=== PATIENT | male | born 1940 | race Hispanic/Latino ===

== ENCOUNTER 2017-04-11 08:53 | Inpatient (IN) | payer OTHER, MEDICARE ==
[~2017-04-11] VITALS: Ht 167.6 cm; Wt 65.9 kg
[~2017-04-11 08:53] MED LIST: LISI40TA4 PO; METO25TA6 PO; PANT40TA25 PO; SIMV20TA6 PO; TRAZ-144 PO
[2017-04-11] MEDS ORDERED: SODIUM CHLORIDE 0.9% 1000ML 1,000 ML IV ONE (09:23)
[2017-04-11 09:29] LABS: BASOPHILS % (AUTO) 0.3 % (0.0-5.0); EOSINOPHILS % (AUTO) 1.3 % (0.0-8.0); HEMATOCRIT 37.3 % (42-54); LYMPHOCYTES % (AUTO) 8.3 % (21.0-51.0); MEAN CORPUSCULAR HEMOGLOBIN 31.2 pg (27.0-33.0); MEAN CORPUSCULAR HGB CONC 33.4 g/dL (32.0-36.0); MEAN CORPUSCULAR VOLUME 93.1 fL (79-99); MONOCYTES % (AUTO) 6.7 % (3.0-13.0); NEUTROPHILS % (AUTO) 83.4 % (40.0-77.0); PLATELET COUNT (AUTO) 268 K/uL (130-400); RED CELL DISTRIBUTION WIDTH 15.1 % (11.0-15.5); WHITE BLOOD COUNT (AUTO) 5.4 K/uL (4.8-10.8)
[2017-04-11 09:38] LABS: CREATININE 1.7 mg/dL (0.5-1.5); POTASSIUM 4.6 mmol/L (3.5-5.1)
[2017-04-11 09:54] LABS: ALBUMIN 2.8 g/dL (3.5-5.0); BILIRUBIN,TOTAL 1.1 mg/dL (0.2-1.0); CREATINE KINASE MB 2.4 ng/mL (0.5-3.6); TOTAL PROTEIN, SERUM 5.8 g/dL (6.0-8.3)
[2017-04-11 09:56] LABS: INR 0.99 (0.85-1.15); PARTIAL THROMBOPLASTIN TIME 27.5 SEC (26.3-35.5); PROTHROMBIN TIME 10.4 SEC (9.6-11.6)
[2017-04-11 10:36] LABS: B-TYPE NATRIURETIC PEPTIDE 43 pg/mL (0-100)
[2017-04-11 11:51] LABS: APPEARANCE,URINE Clear (CLEAR); BILIRUBIN,URINE Negative (NEGATIVE); COLOR,URINE Yellow (YELLOW); GLUCOSE, URINE (UA) Negative (NEGATIVE); KETONES,URINE 15 mg/dL (NEGATIVE); LEUKOCYTE ESTERASE ,URINE Negative (NEGATIVE); NITRATE,URINE Negative (NEGATIVE); OCCULT BLOOD,URINE Negative (NEGATIVE); PH,URINE 5.5 (5.0-8.0); PROTEIN,URINE Negative (NEGATIVE)
[2017-04-11] MEDS ORDERED: SODIUM BICARB 8.4% 50ML SYRINGE IVP ONE (12:00)
[2017-04-11] MEDS ORDERED: EPINEPHRINE 0.1 MG/ML 10 ML SYG IVP ONE (12:00)
[2017-04-11 12:06] LABS: BACTERIA,URINE Rare /HPF (None Seen); RBC,URINE 0-1 /HPF (0-1); SQUAMOUS EPITHELIAL CELL,UR Rare /LPF (0-2); WBC,URINE 0-1 /HPF (0-1)
[2017-04-11 23:45] VITALS: BP_SYST 132; BP_SYST 140; BP_DIAS 63; BP_DIAS 81
[2017-04-12] MEDS: SODIUM CHLORIDE 0.9% 1000ML 1,000 ML IV SCH ×2 (02:34→15:06)
[2017-04-12 03:53] VITALS: BP 103/60
[2017-04-12 05:33] LABS: HEMATOCRIT 37.1 % (42-54); MEAN CORPUSCULAR HEMOGLOBIN 30.9 pg (27.0-33.0); MEAN CORPUSCULAR HGB CONC 33.3 g/dL (32.0-36.0); MEAN CORPUSCULAR VOLUME 92.8 fL (79-99); PLATELET COUNT (AUTO) 267 K/uL (130-400); RED CELL DISTRIBUTION WIDTH 15.3 % (11.0-15.5); WHITE BLOOD COUNT (AUTO) 4.9 K/uL (4.8-10.8)
[2017-04-12 05:45] LABS: BAND NEUTROPHILS % (MANUAL) 8 % (0-2); EOSINOPHILS % (MANUAL) 1 % (1-6); LYMPHOCYTES % (MANUAL) 24 % (22-44); MAN.DIFF COMMENT-IMPRESSION MANUAL DIFFERENTIAL; MONOCYTES % (MANUAL) 1 % (2-9); PLATELET MORPHOLOGY COMMENT ADEQUATE; SEGMENTED NEUTROPHILS % 66 % (40-70)
[2017-04-12 05:56] LABS: CARBON DIOXIDE 26 mmol/L (21-32); CHLORIDE 100 mmol/L (101-111); CREATINE KINASE MB 2.5 ng/mL (0.5-3.6); CREATINE KINASE, TOTAL 85 U/L (21-232); CREATININE 1.2 mg/dL (0.5-1.5); GLOMERULAR FILTR. RATE CALC 63 mL/min (>60); GLUCOSE,RANDOM 74 mg/dL (70-105); MYOGLOBIN 207 ng/mL (10-92); POTASSIUM 5.1 mmol/L (3.5-5.1); SODIUM SERUM 135 mmol/L (136-145); TROPONIN I < 0.04 ng/mL (0.00-0.06); UREA NITROGEN, BLOOD 19 mg/dL (7-18)
[2017-04-12] MEDS ORDERED: TYL3 PO (07:57)
[2017-04-12 08:00] VITALS: BP 133/67
[2017-04-12] MEDS: PANTOPRAZOLE SODIUM 40 MG TABLET.DR PO SCH (09:57)
[2017-04-12 10:35] LABS: CREATINE KINASE, TOTAL 89 U/L (21-232); MYOGLOBIN 192 ng/mL (10-92); TROPONIN I < 0.04 ng/mL (0.00-0.06)
[2017-04-12 11:56] VITALS: BP 129/72
[2017-04-12] MEDS: ONDANSETRON HCL 4 MG/2 ML VIAL IVP PRN ×2 (14:49→20:35)
[2017-04-12] MEDS: ACETAMINOPHEN-CODEINE 300/30MG TAB PO SCH (15:04)
[2017-04-12] MEDS ORDERED: IOPAMIDOL-370 75 ML VIAL IV ONE (15:14)
[2017-04-12] MEDS ORDERED: DIATR MEGLU/DIATRIZOATE SODIUM 30 ML BOTTLE PO ONE (15:15)
[2017-04-12 16:00] VITALS: BP 115/71
[2017-04-12 20:00] VITALS: BP 137/86
[2017-04-12] MEDS ORDERED: TRAZODONE HCL 50 MG TAB PO SCH (21:00)
[2017-04-12] MEDS ORDERED: ATORVASTATIN CALCIUM 10 MG TABLET PO SCH (21:00)
[2017-04-12 23:39] VITALS: BP 118/62
[2017-04-13] MEDS: ONDANSETRON HCL 4 MG/2 ML VIAL IVP PRN ×3 (01:15→14:26)
[2017-04-13] MEDS: SODIUM CHLORIDE 0.9% 1000ML 1,000 ML IV SCH ×2 (01:16→14:36)
[2017-04-13] MEDS: ACETAMINOPHEN-CODEINE 300/30MG TAB PO SCH ×2 (02:30→09:36)
[2017-04-13 03:53] VITALS: BP 141/74
[2017-04-13 08:00] VITALS: BP 133/77
[2017-04-13] MEDS ORDERED: METOPROLOL TARTRATE 25 MG TAB PO SCH (09:00)
[2017-04-13] MEDS ORDERED: LISINOPRIL 40 MG TABLET PO SCH (09:00)
[2017-04-13] MEDS ORDERED: PANTOPRAZOLE SODIUM 40 MG TABLET.DR PO SCH (09:00)
[2017-04-13] MEDS: PANTOPRAZOLE SODIUM 40 MG TABLET.DR PO SCH (09:33)
[2017-04-13] MEDS ORDERED: MEPERIDINE-PF 50 MG/ML SYG IVP PRN (10:30)
[2017-04-13 12:00] VITALS: BP 89/55
[2017-04-13] MEDS: MEPERIDINE-PF 25 MG/ML SYG IVP PRN (14:33)
[2017-04-13 16:00] VITALS: BP 109/59
[2017-04-13 20:00] VITALS: BP 119/67
[2017-04-13] MEDS ORDERED: LORAZEPAM 2 MG/ML 1 ML VIAL IVP PRN ×2 (20:00)
[2017-04-13] MEDS: FAMOTIDINE/PF 20 MG/2 ML VIAL IV SCH (20:59)
[2017-04-13 23:37] VITALS: BP 134/68
[2017-04-14] VITALS (12 sets, daily range): BP systolic 71–152; BP diastolic 49–78
[2017-04-14] MEDS: SODIUM CHLORIDE 0.9% 1000ML 1,000 ML IV SCH ×3 (01:04→18:45)
[2017-04-14 04:44] LABS: HEMATOCRIT 39.3 % (42-54); MEAN CORPUSCULAR HEMOGLOBIN 30.9 pg (27.0-33.0); MEAN CORPUSCULAR HGB CONC 32.9 g/dL (32.0-36.0); MEAN CORPUSCULAR VOLUME 93.8 fL (79-99); PLATELET COUNT (AUTO) 305 K/uL (130-400); RED CELL DISTRIBUTION WIDTH 15.4 % (11.0-15.5); WHITE BLOOD COUNT (AUTO) 3.1 K/uL (4.8-10.8)
[2017-04-14 05:05] LABS: ALBUMIN 2.4 g/dL (3.5-5.0); BILIRUBIN,TOTAL 0.8 mg/dL (0.2-1.0); CREATININE 2.4 mg/dL (0.5-1.5); POTASSIUM 4.9 mmol/L (3.5-5.1); TOTAL PROTEIN, SERUM 5.4 g/dL (6.0-8.3)
[2017-04-14 05:24] LABS: INR 1.07 (0.85-1.15); PARTIAL THROMBOPLASTIN TIME 32.9 SEC (26.3-35.5); PROTHROMBIN TIME 11.2 SEC (9.6-11.6)
[2017-04-14] MEDS ORDERED: SODIUM CHLORIDE 0.9% 1000ML 1,000 ML IV SCH (06:30)
[2017-04-14] MEDS ORDERED: SODIUM CHLORIDE 0.9% 250 ML IV SCH (06:30)
[2017-04-14] MEDS: FAMOTIDINE/PF 20 MG/2 ML VIAL IV SCH ×2 (09:18→20:15)
[2017-04-14] MEDS: MEPERIDINE-PF 25 MG/ML SYG IVP PRN (09:28)
[2017-04-14 16:45] LABS: ABG BASE EXCESS -7.8 mmol/L (-2.0-3.0); ABG HCO3 16.3 mmol/L (21.0-28.0); ABG OXYGEN SATURATION 98.1 % (95.0-99.0); ABG PCO2 30 mmHg (35-48)
[2017-04-14] MEDS ORDERED: KETAMINE HCL 100 MG/ML 5ML VIAL IJ ONE (17:07)
[2017-04-14] MEDS ORDERED: ALBUMIN (HUMAN) 5% 500 ML IV ONE (17:52)
[2017-04-14] MEDS ORDERED: CALCIUM CHLORIDE 100 MG/ML 10 ML SYG IVP ONE (17:52)
[2017-04-14 18:09] LABS: ABG BASE EXCESS -7.8 mmol/L (-2.0-3.0); ABG HCO3 19.8 mmol/L (21.0-28.0); ABG OXYGEN SATURATION 92.5 % (95.0-99.0); ABG PCO2 49 mmHg (35-48)
[2017-04-14] MEDS ORDERED: CEFOXITIN SODIUM 2 GM VIAL ONE (18:38)
[2017-04-14 19:32] LABS: ABG HCO3 13.9 mmol/L (21.0-28.0); ABG OXYGEN SATURATION 91.4 % (95.0-99.0); ABG PCO2 32 mmHg (35-48)
[2017-04-14] MEDS ORDERED: SYRING IV SCH (19:45)
[2017-04-14] MEDS ORDERED: MIDAZOLAM 100MG-0.9% NS 100ML 100 ML IV PRN (19:45)
[2017-04-14] MEDS ORDERED: SODIUM CHLORIDE 0.9% 1000ML 1,000 ML IV ONE ×5 (19:45→23:00)
[2017-04-14] MEDS ORDERED: SODIUM BICARB 50MEQ 50ML VIAL IV ONE ×2 (19:45→21:30)
[2017-04-14] MEDS ORDERED: SODIUM CHLORIDE 0.9% IV SCH (19:45)
[2017-04-14] MEDS ORDERED: SODIUM BICARB 8.4% IV SCH (19:45)
[2017-04-14] MEDS ORDERED: FENTANYL 2500MCG+NS 250ML 250 ML IV PRN (19:45)
[2017-04-14] MEDS ORDERED: PHENYLEPHRINE HCL 50 MG in SODIUM CHLORIDE 0.9% 250 ML IV SCH (19:45)
[2017-04-14 20:16] LABS: BASOPHILS % (AUTO) 0.2 % (0.0-5.0); HEMATOCRIT 34.9 % (42-54); MEAN CORPUSCULAR HEMOGLOBIN 31.3 pg (27.0-33.0); MEAN CORPUSCULAR HGB CONC 33.6 g/dL (32.0-36.0); MEAN CORPUSCULAR VOLUME 93.2 fL (79-99); MONOCYTES % (AUTO) 4.6 % (3.0-13.0); NEUTROPHILS % (AUTO) 89.2 % (40.0-77.0); PLATELET COUNT (AUTO) 252 K/uL (130-400); RED BLOOD CELL COUNT(AUTO) 3.74 MIL/uL (4.50-6.20); RED CELL DISTRIBUTION WIDTH 15.4 % (11.0-15.5); WHITE BLOOD COUNT (AUTO) 3.4 K/uL (4.8-10.8)
[2017-04-14 20:34] LABS: BILIRUBIN,TOTAL 0.6 mg/dL (0.2-1.0); CREATININE 2.7 mg/dL (0.5-1.5); MAGNESIUM 1.5 mg/dL (1.80-2.40); PHOSPHORUS 5.9 mg/dL (2.5-4.9); POTASSIUM 4.9 mmol/L (3.5-5.1); TOTAL PROTEIN, SERUM 4.5 g/dL (6.0-8.3)
[2017-04-14] MEDS ORDERED: SODIUM BICARB 50MEQ 50ML VIAL IV STA (21:03)
[2017-04-14] MEDS ORDERED: SODIUM BICARB 50MEQ 50ML VIAL ONE (21:06)
[2017-04-14] MEDS ORDERED: AMIODARONE HCL 900 MG in DEXTROSE 5%-WATER 500 ML IV SCH (21:30)
[2017-04-14] MEDS ORDERED: AMIODARONE HCL 150 MG in DEXTROSE 5%-WATER 100 ML IV SCH (21:30)
[2017-04-14] MEDS: METRONIDAZOLE 500MG/100ML BAG 100 ML IV SCH (21:58)
[2017-04-14] MEDS: NOREPINEPHRINE 4MG/NS 250ML 250 ML IV SCH (22:28)
[2017-04-15] VITALS (14 sets, daily range): BP systolic 72–122; BP diastolic 50–80
[2017-04-15] MEDS ORDERED: DEXTROSE 50%-WATER 50 ML DISP.SYRIN IV ONE (00:38)
[2017-04-15 01:05] LABS: ABG BASE EXCESS -9.6 mmol/L (-2.0-3.0); ABG HCO3 15.5 mmol/L (21.0-28.0); ABG OXYGEN SATURATION 99.6 % (95.0-99.0); ABG PCO2 32 mmHg (35-48)
[2017-04-15] MEDS: SODIUM CHLORIDE 0.9% 1000ML 1,000 ML IV SCH (01:49)
[2017-04-15] MEDS ORDERED: MAGNESIUM 2GM PREMIX 50ML 50 ML IV SCH (02:30)
[2017-04-15] MEDS: NOREPINEPHRINE 4MG/NS 250ML 250 ML IV SCH (02:33)
[2017-04-15] MEDS ORDERED: VASOPRESSIN 20 UNITS/ML 1ML VIAL ONE (03:54)
[2017-04-15] MEDS ORDERED: SODIUM BICARB 50MEQ 50ML VIAL ONE (03:57)
[2017-04-15 04:05] LABS: ABG HCO3 11.6 mmol/L (21.0-28.0); ABG OXYGEN SATURATION 99.5 % (95.0-99.0); ABG PCO2 22 mmHg (35-48)
[2017-04-15 04:45] LABS: HEMATOCRIT 36.7 % (42-54); LYMPHOCYTES % (AUTO) 5.8 % (21.0-51.0); MEAN CORPUSCULAR HEMOGLOBIN 32.3 pg (27.0-33.0); MEAN CORPUSCULAR HGB CONC 34.3 g/dL (32.0-36.0); MEAN CORPUSCULAR VOLUME 94.1 fL (79-99); MONOCYTES % (AUTO) 3.5 % (3.0-13.0); NEUTROPHILS % (AUTO) 90.7 % (40.0-77.0); PLATELET COUNT (AUTO) 234 K/uL (130-400); RED CELL DISTRIBUTION WIDTH 16.1 % (11.0-15.5)
[2017-04-15 05:00] LABS: CREATININE 2.5 mg/dL (0.5-1.5); MAGNESIUM 1.5 mg/dL (1.80-2.40); PHOSPHORUS 4.9 mg/dL (2.5-4.9); POTASSIUM 5.1 mmol/L (3.5-5.1)
[2017-04-15] MEDS: METRONIDAZOLE 500MG/100ML BAG 100 ML IV SCH (05:06)
[2017-04-15 05:25] LABS: CREATINE KINASE MB 12.2 ng/mL (0.5-3.6)
[2017-04-15 05:41] LABS: TROPONIN I 1.92 ng/mL (0.00-0.06)
== END 2017-04-15 07:30 | disposition expired | DRG 853 ==
LOC: EDH 08:53 → EDHIP 18:58 → OBSVTOIN 18:58 → 3CH 23:54 → 2CH 04-14 17:31
PROVIDERS: ADMIT Family Medicine; ATTEND Family Medicine
PROC: 0BH17EZ Insertion of Endotracheal Airway into Trachea, Via Natural or Artificial Opening (ICD-10-PCS; 2017-04-14)
PROC: 05H533Z Insertion of Infusion Device into Right Subclavian Vein, Percutaneous Approach (ICD-10-PCS; 2017-04-14)
PROC: 5A1935Z Respiratory Ventilation, Less than 24 Consecutive Hours (ICD-10-PCS; principal; 2017-04-14 16:40)
PROC: 0YQ50ZZ Repair Right Inguinal Region, Open Approach (ICD-10-PCS; 2017-04-14 16:40)
PROC: 0DB80ZZ Excision of Small Intestine, Open Approach (ICD-10-PCS; 2017-04-14 16:40)
DX: A41.9 Sepsis, unspecified organism (principal); R65.21 Severe sepsis with septic shock; N17.9 Acute kidney failure, unspecified; I95.9 Hypotension, unspecified; E87.2 Acidosis; I48.91 Unspecified atrial fibrillation; R18.8 Other ascites; D64.9 Anemia, unspecified; K40.30 Unilateral inguinal hernia, with obstruction, without gangrene, not specified as recurrent; I46.9 Cardiac arrest, cause unspecified; I10 Essential (primary) hypertension; E78.5 Hyperlipidemia, unspecified; R29.6 Repeated falls; K44.9 Diaphragmatic hernia without obstruction or gangrene; R55 Syncope and collapse; Z28.21 Immunization not carried out because of patient refusal; Z90.49 Acquired absence of other specified parts of digestive tract
CPT/HCPCS: 36415; 36600; 70450; 71045; 74178; 80048; 80053; 81001; 82150; 82330; 82435; 82550; 82553; 82803; 82947; 82948; 83605; 83690; 83735; 83874; 83880; 84100; 84132; 84295; 84484; 85018; 85025; 85027; 85610; 85730; 87040; 87804; 92610; 92950; 93005; 94002; 94003; A4344; J0171; J0282; J0694; J2060; J2175; J2370; J2405; J3010; J3490; J7030; J7040; J7060; J7070; P9045; Q9963; Q9967